=== PATIENT | female | born 1975 ===

== ENCOUNTER 2020-03-27 07:00 | Outpatient (RCR) | payer OTHER, SELFPAY ==
[2020-03-26 12:22] VITALS: BMI 19.3
--- NOTE | 2020-03-26 12:39 | PC.ADMIT ---
Patient is a 44 year old female who started the PHP program today. Patient was referred by [facility] where she was admitted s/p overdose on Klonopin and Propranolol. Patient also relapsed on ETOH 3 days prior to hospitalization and prior to that had been sober for 12 years. Before patient was hospitalized psychiatrically she was admitted medically to ICU and intubated. Pt was in ICU for 3 days. Pt reports multiple stressors including losing her job in [employer] and apartment d/t Covid-19 pandemic. Pt having difficulty adjusting and is currently is living in [place] with her family. Patients parents are currently administering her medications and is keeping her medication in a lock box as a precaution. Patient stated she is at [facility] to, stabilize and for structure . Patient is calm and cooperative. Presents as depressed. Denied current SI. Gave verbal permission to email her a copy of her safety plan which includes the crisis numbers. Asked who she could talk to if she felt unsafe and she stated her parents and her God sister who is currently living with her. Patient also agreed to talk to staff if she was not feeling safe. Pt reports AH of sir however stated they have lessoned since being on Abilify. Reports that she is not sleeping despite Trazodone. Education provided.
--- NOTE | 2020-03-26 13:44 | HO.PS.ADMBH ---
HPI Chief Complaint: F33.2 Sources of Information: patient interviewed and chart reviewed (I think the problem is personality based, not biological.) Additional Sources of Information: Melida is a 44 yo female. She is referred to [facility] after an admission to [facility]. She was admitted s/p OD of Klonopin, Propranolol and alcohol. This is her first suicide attempt and psychiatric admission. She reports anxiety is the most prominent issue, along with auditory perceptual alteration siren sounds in her head . She has been experiencing a decrease in appetite, an increase in her time in bed until recently and the severe anxiety without panic. 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 The losses from the pandemic, the resulting lack of structure and social atrophy she believes have increased her symptoms and precipitated her overdose. She has applied to the [facility] [place] and hopes to be accepted. She found the hospital frightening-being locked in, having freedoms curtailed and feeling uncomfortable around strangers. She hopes to not repeat the need for in pt care and is invested in developing skills to manage symptoms. [facility] Medical History (Updated 03/26/20 @ 15:28 by Danita Frey APRN) Fibroadenoma of breast Hyperlipidemia Irritable bowel Narrative: Perimenopausal Family History: Mother has anxiety Social History: Pt was living in [place]. She returned to parents home when she lost her job due to the pandemic. She is an only child. She graduated from [employer] with a BA in [employer]. 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 Sober since age 32, but she did drink on 03/10/20 when she attempted suicide Overtook Klonopin in recent suicide attempt Stopped Cannabis at age 32. Trauma History: Denies, however, anxiety has been traumatizing. Diagnostics Vital Signs (24Hr): Body Mass Index 19.3 Meds/Allergies Meds Home Medications Medication Instructions Recorded Confirmed Type PNV cmb#95-ferrous fumarate-FA 1 tab PO DAILY 03/26/20 03/26/20 History [] aripiprazole [Abilify] 5 mg PO DAILY 03/26/20 03/26/20 History lamotrigine 50 mg PO BEDTIME 03/26/20 03/26/20 History nicotine (polacrilex) 2 mg BUCCAL Q2H 03/26/20 03/26/20 History trazodone 100 mg PO BEDTIME 03/26/20 03/26/20 History Allergies Allergies Allergy/AdvReac Type Severity Reaction Status Date / Time Sulfa (Sulfonamide Allergy Unknown Verified 03/26/20 10:16 Antibiotics) Mental Status Exam Mental Status Exam Patient Appearance: Well Grooomed and Appropriate Patient Orientation: Person, Place, Time and Situation Level of Consciousness: Awake, Appropriate and Alert Patient Behavior: Appropriate, Talkative, Cooperative, Anxious and Good Eye Contact Mood Description: Calm, Depressed, Anxious, Flat, Sad and Nervous Affect Description: Calm, Depressed, Anxious, Flat and Nervous Patient Cognition Impaired: No Ability to Follow Directions: Excellent Speech Pattern: Clear Memory Description: Intact Hallucinations: Auditory (Sounds of sirens which the addition of Abilify 5 mg has not really done much to quiet.) Delusions: Not Present Thought Process: Intact and Rumination Thought Content: Intact and Logical Depressive Symptoms: Increased Anxiety, Difficulty Sleeping, Changes in Appetite, Sleeping More Than Usual and Thoughts of /Suicide (passive, without current plan, intent) Judgement: Good (Intact) Judgement and Insight: Intact Assessment & Plan Assessment & Plan (1) Abnormal auditory perception, unspecified: Status: Acute Code(s): H93.299 - Other abnormal auditory perceptions, unspecified ear Assessment and Plan: Pt reports she continues to hear siren like sounds even in consideration to addition of Abilify while in hospital Will trial an increase of Abilify to 7.5 mg daily Patient educated on: diagnosis, medication risk/benefits, substance abuse, therapeutic strategies and medical condition Informed Consent: understands Reason for continued partial hosp. stay Substantial Risk for: harm to self and rapid decompensation Certification I certify that partial hospital treatment is medically necessary due to the symptoms and problems resulting from the patient's mental illness and the failure to treat the patient at the partial hospital level of care would likely result in the patient requiring inpatient psychiatric care which could not be prevented at a less intensive level of care.
--- NOTE | 2020-03-30 08:44 | PC.NURSE ---
Recieved a call from pt's God-sister, [place]. She shared that pt has been hospitalized psychiatrically at [facility]. She said pt was indicating she was not safe, and spoke to her therapist, who was going to section her if she were not to go inpatient voluntarily. She said pt did go inpatient voluntalrily, and that she hopes for pt to get into a residential program following the admssion. She said they are waiting for pt to get into [facility] program. I did not acknowledge knowing the pt because there is no release in the chart for [place].
== END 2020-03-27 23:55 ==
LOC: HO.PHPA 07:00
PROVIDERS: Visit Provider Psychiatry & Neurology Psychiatry
DX: F33.2 Major depressive disorder, recurrent severe without psychotic features (principal); F41.1 Generalized anxiety disorder
CPT/HCPCS: 90792; 90853